=== PATIENT | female | born 1960 | race Caucasian/White ===

== ENCOUNTER 2022-03-19 11:09 | Inpatient (IN) | payer SELFPAY ==
[2022-03-19] MEDS ORDERED: Ondansetron PF 4 MG/2 ML Vial ONE (11:27)
[2022-03-19 12:24] LABS: #Eosinphils 0.1 thou/uL (0.0-0.7); #Monocytes 0.5 thou/uL (0.11-0.59); #Neutrophils 4.6 thou/uL (1.40-6.50); %Basophils 0.6 % (0.0-1.0); %Eosinophils 1.3 % (0.0-10.0); %Lymphocytes 16.4 % (21.0-51.0); %Monocytes 8.4 % (0.0-10.0); %Neutrophils 73.3 % (42.0-75.0); Hemoglobin 11.7 g/dL (12.0-16.0); Mean Corpuscular Hemoglobin 31.5 pg (27.0-31.0); Mean Corpuscular Volume 95.3 fl (78.0-98.0); Mean Platelet Volume 7.4 fL (7.4-10.4); Platelet Count 246 10x3/uL (130-400); RBC Distribution Width 13.1 % (11.5-14.5); Red Blood Cell (RBC) Count 3.72 mill/uL (4.20-5.40); White Blood Cell (WBC) Count 6.2 10x3/uL (4.8-10.8)
[2022-03-19 12:58] LABS: ALT (SGPT) 17 U/L (8-55); AST (SGOT) 19 U/L (5-34); Albumin 3.3 g/dL (3.4-4.8); Alkaline Phosphatase 71 U/L (40-110); Anion Gap 22 mmol/L (10-20); BUN (Urea Nitrogen) 108 mg/dL (9.8-20.1); Bilirubin, Total 0.5 mg/dL (0.2-1.2); Calc. Creatinine Clearance 0 mL/min (70-130); Calcium 7.8 mg/dL (7.8-10.44); Carbon Dioxide 18 mmol/L (23-31); Chloride 93 mmol/L (98-107); Estimated GFR 20; Globulin 2.1 g/dL (2.4-3.5); Glucose 76 mg/dL (80-115); Lipase 93 U/L (8-78); Potassium 3.1 mmol/L (3.5-5.1); Protein, Total 5.4 g/dL (5.8-8.1); Sodium 130 mmol/L (136-145)
[2022-03-19 13:09] LABS: CKMB 4.3 ng/mL (0-6.6)
[2022-03-19 13:39] LABS: Bilirubin Negative (Negative); Blood, Urine Negative (Negative); Clarity Clear (Clear); Glucose, Urine (Dipstick) Normal (Negative); Ketone, Urine Trace mg/dL (Negative); Leukocyte Negative Leu/uL (Negative); Nitrite Negative (Negative); Protein, Urine (Dipstick) Negative (Neg-Trace); Specific Gravity, Urine 1.013 (1.002-1.036); Urobilinogen Normal mg/dL (Less than 2)
[2022-03-19] MEDS ORDERED: Aspirin Chewable 81 MG TAB ONE (14:26)
[2022-03-19] MEDS ORDERED: Potassium Chloride 20 MEQ in Premix Bag 1 BAG IVPB SCH (15:30)
[2022-03-19] MEDS ORDERED: Potassium Chloride 10 MEQ in Premix Bag 1 BAG IVPB SCH (15:30)
[2022-03-19 16:13] LABS: Magnesium 2.1 mg/dL (1.6-2.6); Phosphorus 3.9 mg/dL (2.3-4.7)
[2022-03-19] MEDS ORDERED: Ondansetron PF 4 MG/2 ML Vial IVP PRN (16:15)
[2022-03-19] MEDS ORDERED: Acetaminophen 325 MG TAB PO PRN (16:15)
[2022-03-19] MEDS ORDERED: Acetaminophen 650 MG Suppository PR PRN (16:15)
[2022-03-19] MEDS ORDERED: Bisacodyl 5 MG TAB PO PRN (16:15)
[2022-03-19 16:17] VITALS: BMI 32.0
[2022-03-19 16:17] LABS: Troponin I 0.061 ng/mL (< 0.028)
[2022-03-19] MEDS: Sodium Chloride 0.9% 1,000 ML IV SCH (17:34)
[2022-03-19] MEDS: Nicotine 14 MG PATCH TD SCH (17:34)
[2022-03-19 17:59] LABS: SARS-CoV-2 NAA Rapid Test Not Detected (NotDetected)
[2022-03-19 19:15] LABS: Troponin I 0.049 ng/mL (< 0.028)
[2022-03-19] MEDS: Heparin 5,000 UNITS/ML VIAL SC SCH (21:36)
[2022-03-20 04:49] LABS: #Eosinphils 0.1 thou/uL (0.0-0.7); #Lymphocytes 1.6 thou/uL (1.20-3.40); #Monocytes 0.4 thou/uL (0.11-0.59); #Neutrophils 3.9 thou/uL (1.40-6.50); %Basophils 0.1 % (0.0-1.0); %Eosinophils 1.8 % (0.0-10.0); %Lymphocytes 26.8 % (21.0-51.0); %Monocytes 6.6 % (0.0-10.0); %Neutrophils 64.7 % (42.0-75.0); Mean Corpuscular HGB CONC 33.2 g/dL (32.0-36.0); Mean Corpuscular Hemoglobin 31.8 pg (27.0-31.0); Mean Corpuscular Volume 95.8 fl (78.0-98.0); Mean Platelet Volume 7.5 fL (7.4-10.4); Platelet Count 236 10x3/uL (130-400); RBC Distribution Width 13.2 % (11.5-14.5); Red Blood Cell (RBC) Count 3.47 mill/uL (4.20-5.40)
[2022-03-20 05:12] LABS: Anion Gap 21 mmol/L (10-20); BUN (Urea Nitrogen) 78 mg/dL (9.8-20.1); Calc. Creatinine Clearance 45 mL/min (70-130); Calcium 8.3 mg/dL (7.8-10.44); Carbon Dioxide 16 mmol/L (23-31); Chloride 100 mmol/L (98-107); Estimated GFR 36; Glucose 65 mg/dL (80-115); Sodium 134 mmol/L (136-145)
[2022-03-20] MEDS: Heparin 5,000 UNITS/ML VIAL SC SCH ×3 (10:03→20:18)
[2022-03-20] MEDS: Sodium Chloride 0.9% 1,000 ML IV SCH ×2 (10:03→18:53)
[2022-03-20] MEDS ORDERED: fentaNYL PF 100 MCG/2 ML SYRINGE ONE (16:07)
[2022-03-20] MEDS ORDERED: PROPOFOL 200 MG/20 ML VIAL ONE (17:31)
[2022-03-20] MEDS ORDERED: Promethazine HCl 25 MG/ML VIAL IM PRN (17:50)
[2022-03-20] MEDS ORDERED: Promethazine HCl 25 MG/ML VIAL IVPB PRN (17:50)
[2022-03-20] MEDS ORDERED: Ondansetron HCl/PF 4 MG/2 ML Vial IVP PRN (17:50)
[2022-03-20] MEDS ORDERED: Pantoprazole 40 MG VIAL IVP SCH (18:15)
[2022-03-20] MEDS: Potassium Chloride 20 MEQ in Premix Bag 1 BAG IVPB SCH ×2 (20:17→22:25)
[2022-03-20] MEDS: Nicotine 14 MG PATCH TD SCH (20:17)
[2022-03-21] MEDS ORDERED: Potassium Chloride 20 MEQ in Premix Bag 1 BAG IVPB SCH (01:00)
[2022-03-21] MEDS: Sodium Chloride 0.9% 1,000 ML IV SCH ×2 (01:05→13:15)
[2022-03-21] MEDS: Heparin 5,000 UNITS/ML VIAL SC SCH ×3 (08:14→20:25)
[2022-03-21] MEDS: Gabapentin 300 MG CAP PO SCH (08:24)
[2022-03-21] MEDS ORDERED: Non-Formulary Item 1 EACH (Hydrochlorothiazide [Hydrochlorothiazide] 12.5 MG Tablet) PO SCH (09:00)
[2022-03-21] MEDS ORDERED: Metoprolol Tartrate 25 MG TAB PO SCH (09:00)
[2022-03-21] MEDS: Nicotine 14 MG PATCH TD SCH (15:15)
[2022-03-21] MEDS: Mirtazapine 15 MG TAB PO SCH (20:25)
[2022-03-22] MEDS: Sodium Chloride 0.9% 1,000 ML IV SCH ×2 (00:19→08:39)
[2022-03-22] MEDS: Levothyroxine Sodium 112 MCG TAB PO SCH (05:50)
[2022-03-22 06:35] LABS: #Basophils 0.1 thou/uL (0.0-0.2); #Eosinphils 0.1 thou/uL (0.0-0.7); #Lymphocytes 2.2 thou/uL (1.20-3.40); #Monocytes 0.5 thou/uL (0.11-0.59); #Neutrophils 3.5 thou/uL (1.40-6.50); %Basophils 0.9 % (0.0-1.0); %Eosinophils 1.9 % (0.0-10.0); %Lymphocytes 34.1 % (21.0-51.0); %Monocytes 7.4 % (0.0-10.0); %Neutrophils 55.6 % (42.0-75.0); Hemoglobin 10.5 g/dL (12.0-16.0); Mean Corpuscular Hemoglobin 31.1 pg (27.0-31.0); Mean Corpuscular Volume 97.4 fl (78.0-98.0); Platelet Count 216 10x3/uL (130-400); RBC Distribution Width 13.4 % (11.5-14.5); Red Blood Cell (RBC) Count 3.36 mill/uL (4.20-5.40); White Blood Cell (WBC) Count 6.4 10x3/uL (4.8-10.8)
[2022-03-22 07:02] LABS: Anion Gap 15 mmol/L (10-20); BUN (Urea Nitrogen) 14 mg/dL (9.8-20.1); Calc. Creatinine Clearance 97 mL/min (70-130); Calcium 8.1 mg/dL (7.8-10.44); Carbon Dioxide 19 mmol/L (23-31); Chloride 107 mmol/L (98-107); Estimated GFR 89; Glucose 65 mg/dL (80-115); Potassium 3.3 mmol/L (3.5-5.1); Sodium 138 mmol/L (136-145)
[2022-03-22] MEDS: Gabapentin 300 MG CAP PO SCH (08:39)
[2022-03-22] MEDS: Heparin 5,000 UNITS/ML VIAL SC SCH (08:39)
[2022-03-22] MEDS: Nicotine 14 MG PATCH TD SCH (15:05)
[2022-03-22] MEDS: Mirtazapine 15 MG TAB PO SCH (20:32)
[2022-03-23] MEDS: Levothyroxine Sodium 112 MCG TAB PO SCH (06:05)
[2022-03-23] MEDS: Gabapentin 300 MG CAP PO SCH (09:18)
[2022-03-23] MEDS: Enoxaparin Sodium 40 MG/0.4 ML SYRINGE SC SCH (09:18)
[2022-03-23] MEDS: Nicotine 14 MG PATCH TD SCH (16:19)
[2022-03-23] MEDS ORDERED: Potassium Chloride 20 MEQ TAB PO SCH (19:00)
[2022-03-23] MEDS: Mirtazapine 15 MG TAB PO SCH (21:09)
[2022-03-24] MEDS: Levothyroxine Sodium 112 MCG TAB PO SCH (05:46)
[2022-03-24] MEDS ORDERED: Potassium Chloride 20 MEQ TAB PO SCH (08:00)
[2022-03-24] MEDS: Gabapentin 300 MG CAP PO SCH (08:09)
[2022-03-24] MEDS: Enoxaparin Sodium 40 MG/0.4 ML SYRINGE SC SCH (08:10)
[2022-03-24 12:10] VITALS: BP 96/69; TEMP 98.2
== END 2022-03-24 12:44 | disposition home or self-care (01) | DRG 683 ==
LOC: ERS 11:09 → 2NO 14:31 → T4-B 03-20 21:57
PROVIDERS: ADMIT Internal Medicine; ATTEND Family Medicine
PROC: 0D758ZZ Dilation of Esophagus, Via Natural or Artificial Opening Endoscopic (ICD-10-PCS; principal; 2022-03-20)
PROC: 0DB78ZX Excision of Stomach, Pylorus, Via Natural or Artificial Opening Endoscopic, Diagnostic (ICD-10-PCS; 2022-03-20)
DX: N17.9 Acute kidney failure, unspecified (principal); E87.1 Hypo-osmolality and hyponatremia; Z66 Do not resuscitate; I10 Essential (primary) hypertension; E03.9 Hypothyroidism, unspecified; Z20.822 Contact with and (suspected) exposure to COVID-19; F32.A Depression, unspecified; F17.210 Nicotine dependence, cigarettes, uncomplicated; R33.9 Retention of urine, unspecified; E87.6 Hypokalemia; E86.0 Dehydration; K29.80 Duodenitis without bleeding; K29.70 Gastritis, unspecified, without bleeding; R63.0 Anorexia; R13.12 Dysphagia, oropharyngeal phase; Z79.890 Hormone replacement therapy; Z79.899 Other long term (current) drug therapy; Z68.32 Body mass index [BMI] 32.0-32.9, adult
CPT/HCPCS: 36415; 36416; 71045; 74018; 80048; 80053; 81003; 82553; 83605; 83690; 83735; 84100; 84439; 84443; 84484; 85025; 88305; 93005; C9113; J1644; J1650; J2405; J2704; J3480; J7050; U0002

== ENCOUNTER 2023-12-01 11:02 | Outpatient (CLI) | payer OTHER | END 2023-12-01 11:03 | disposition home or self-care (01) | LOC: BICRAD 11:02 | PROVIDERS: ATTEND Preventive Medicine Occupational Medicine | DX: M16.11 Unilateral primary osteoarthritis, right hip (principal); M54.50 Low back pain, unspecified; G89.29 Other chronic pain; M47.816 Spondylosis without myelopathy or radiculopathy, lumbar region; M43.16 Spondylolisthesis, lumbar region | CPT/HCPCS: 72100 ==

== ENCOUNTER 2024-12-30 05:30 | Inpatient (IN) | payer SELFPAY ==
[2024-12-30 06:35] LABS: ALT (SGPT) 18 U/L (Less than 34); AST (SGOT) 33 U/L (11-34); Acetaminophen Less than 10 mcg/mL (Less than 10); Albumin 3.9 g/dL (3.1-4.5); Alkaline Phosphatase 109 U/L (40-110); Anion Gap 19 mmol/L (10-20); BUN (Urea Nitrogen) 31 mg/dL (9.8-20.1); Bilirubin, Total 0.5 mg/dL (0.3-1.2); Calc. Creatinine Clearance 0 mL/min (70-130); Calcium 9.8 mg/dL (7.8-10.44); Carbon Dioxide 17 mmol/L (23-31); Chloride 109 mmol/L (98-107); Globulin 3.4 g/dL (2.4-3.5); Glucose 92 mg/dL (80-115); Magnesium 2.1 mg/dL (1.6-2.6); Potassium 3.9 mmol/L (3.5-5.1); Salicylate Less than 8.0 mg/dL (Less than 8.0); Sodium 141 mmol/L (136-145)
[2024-12-30 06:36] LABS: #Basophils Less than 0.03 10x3/uL (0.0-0.2); #Eosinophils Less than 0.03 10x3/uL (0.0-0.7); #Monocytes 0.33 10x3/uL (0.11-0.59); #Neutrophils 8.63 10x3/uL (1.40-6.50); %Basophils 0.2 % (0.0-1.0); %Eosinophils 0.1 % (0.0-10.0); %Lymphocytes 12.1 % (21.0-51.0); %Monocytes 3.2 % (0.0-10.0); %Neutrophils 84.1 % (42.0-75.0); Hematocrit 40.4 % (36.0-47.0); Hemoglobin 13.1 g/dL (12.0-16.0); Mean Corpuscular Hemoglobin 32.0 pg (27.0-31.0); Mean Corpuscular Volume 98.8 fL (78.0-98.0); Platelet Count 200 10x3/uL (130-400); Red Blood Cell (RBC) Count 4.09 mill/uL (4.20-5.40); White Blood Cell (WBC) Count 10.26 10x3/uL (4.8-10.8)
[2024-12-30 06:56] LABS: Free T4 (Free Thyroxine) 0.42 ng/dL (0.70-1.48); Thyroid Stimulating Hormone 9.5026 uIU/mL (0.35-4.94)
[2024-12-30] MEDS ORDERED: Aspirin Chewable 81 MG TAB ONE (09:11)
[2024-12-30 09:48] LABS: Bacteria/HPF None Seen HPF (None Seen); CAUTI Indications for Culture Alt mental st,lethar; Glucose, Urine (Dipstick) Normal (Negative); Leukocyte Negative Leu/uL (Negative); Protein, Urine (Dipstick) 70 mg/dL (Neg-Trace); RBC/HPF 0-3 HPF (0-3); Specific Gravity, Urine 1.034 (1.002-1.036); WBC/HPF 0-3 HPF (0-3)
[2024-12-30] MEDS ORDERED: hydrALAZINE 20 MG/ML VIAL SLOW IVP PRN (09:50)
[2024-12-30] MEDS ORDERED: Ondansetron PF 4 MG/2 ML Vial IVP PRN (09:50)
[2024-12-30] MEDS ORDERED: Senokot S 8.6-50 MG TAB PO PRN (09:50)
[2024-12-30] MEDS ORDERED: Acetaminophen 325 MG TAB PO PRN (09:50)
[2024-12-30] MEDS ORDERED: Iopamidol-370 76% 500 ML MDV (1 ML CHARGE) ONE (09:52)
[2024-12-30 09:55] LABS: Cocaine Metabolite Screen Negative (Negative); THC/Cannabinoid Screen Negative (Negative); Tricyclic Screen Negative (Negative); Urine Culture Reflex No No
[2024-12-30] MEDS ORDERED: Electrolyte Replacement Protocol 1 EACH FS SCH (10:00)
[2024-12-30 14:41] VITALS: BMI 25.7
[2024-12-31 03:52] LABS: #Basophils 0.04 10x3/uL (0.0-0.2); #Eosinophils 0.14 10x3/uL (0.0-0.7); #Monocytes 0.40 10x3/uL (0.11-0.59); #Neutrophils 8.24 10x3/uL (1.40-6.50); %Basophils 0.4 % (0.0-1.0); %Eosinophils 1.3 % (0.0-10.0); %Lymphocytes 19.3 % (21.0-51.0); %Monocytes 3.6 % (0.0-10.0); %Neutrophils 74.9 % (42.0-75.0); Hematocrit 34.9 % (36.0-47.0); Hemoglobin 12.0 g/dL (12.0-16.0); Mean Corpuscular Hemoglobin 33.6 pg (27.0-31.0); Mean Corpuscular Volume 97.8 fL (78.0-98.0); Platelet Count 264 10x3/uL (130-400); Red Blood Cell (RBC) Count 3.57 mill/uL (4.20-5.40); White Blood Cell (WBC) Count 11.01 10x3/uL (4.8-10.8)
[2024-12-31 04:24] LABS: Anion Gap 17 mmol/L (10-20); BUN (Urea Nitrogen) 26 mg/dL (9.8-20.1); Calc. Creatinine Clearance 87 mL/min (70-130); Calcium 8.7 mg/dL (7.8-10.44); Carbon Dioxide 18 mmol/L (23-31); Cardiac Risk 5.3 (Less than 4.5); Chloride 107 mmol/L (98-107); Cholesterol 195 mg/dl (< 200 Desired); Glucose 78 mg/dL (80-115); HDL Cholesterol 37 mg/dL (>60 Neg Risk); LDL Cholesterol, Calculated 129 mg/dL; Potassium 3.8 mmol/L (3.5-5.1); Sodium 138 mmol/L (136-145); Triglycerides 144 mg/dL (Less than 150)
[2024-12-31] MEDS: Aspirin 81 mg Enteric Coated Tablet PO SCH (09:58)
[2024-12-31] MEDS: Pantoprazole 40 MG DR.TAB PO SCH (09:58)
[2024-12-31] MEDS: Enoxaparin 40 MG (0.4 mL) SYRINGE SC SCH (09:59)
[2025-01-02 04:37] LABS: #Basophils 0.06 10x3/uL (0.0-0.2); #Eosinophils 0.18 10x3/uL (0.0-0.7); #Monocytes 0.38 10x3/uL (0.11-0.59); #Neutrophils 3.77 10x3/uL (1.40-6.50); %Basophils 0.9 % (0.0-1.0); %Eosinophils 2.8 % (0.0-10.0); %Lymphocytes 32.1 % (21.0-51.0); %Monocytes 5.8 % (0.0-10.0); %Neutrophils 57.9 % (42.0-75.0); Hematocrit 33.2 % (36.0-47.0); Hemoglobin 10.8 g/dL (12.0-16.0); Mean Corpuscular Hemoglobin 32.5 pg (27.0-31.0); Mean Corpuscular Volume 100.0 fL (78.0-98.0); Platelet Count 237 10x3/uL (130-400); Red Blood Cell (RBC) Count 3.32 mill/uL (4.20-5.40); White Blood Cell (WBC) Count 6.51 10x3/uL (4.8-10.8)
[2025-01-02 05:04] LABS: Anion Gap 13 mmol/L (10-20); BUN (Urea Nitrogen) 12 mg/dL (9.8-20.1); Calc. Creatinine Clearance 98 mL/min (70-130); Calcium 8.3 mg/dL (7.8-10.44); Carbon Dioxide 23 mmol/L (23-31); Chloride 108 mmol/L (98-107); Glucose 91 mg/dL (80-115); Potassium 3.2 mmol/L (3.5-5.1); Sodium 141 mmol/L (136-145)
[2025-01-02 13:28] LABS: Potassium 3.8 mmol/L (3.5-5.1)
[2025-01-02 17:18] VITALS: BP 129/86; TEMP 97.9
== END 2025-01-02 18:29 | disposition home or self-care (01) | DRG 71 ==
LOC: ERS 05:30 → PCU 08:56
PROVIDERS: ADMIT Internal Medicine; ATTEND Emergency Medicine
DX: G93.41 Metabolic encephalopathy (principal); E87.20 Acidosis, unspecified; G91.2 (Idiopathic) normal pressure hydrocephalus; N17.9 Acute kidney failure, unspecified; E03.9 Hypothyroidism, unspecified; I10 Essential (primary) hypertension; F17.210 Nicotine dependence, cigarettes, uncomplicated; F32.A Depression, unspecified; Z79.899 Other long term (current) drug therapy; Z98.890 Other specified postprocedural states
CPT/HCPCS: 36415; 70496; 70498; 70551; 71045; 72125; 80048; 80053; 80061; 80306; 80307; 81001; 83605; 83735; 84145; 84439; 84443; 84481; 84484; 85025; 87077; 87086; 87426; 87633; 93005; J1650; J7120; Q9967